=== PATIENT | female | born 1975 | race Caucasian/White ===

== ENCOUNTER 2016-06-25 06:42 | Day surgery (SDC) | payer OTHER ==
--- NOTE | 2016-06-24 15:32 | HP ---
DATE OF CLINIC: 06/20/2016 VICKY MARQUEZ : 1975 PLANNED PROCEDURE: Left Knee Arthroscopic Partial Medial Meniscectomy and Microfracture Chondroplasty DATE OF SURGERY: June 25, 2016 SURGEON: Jp Corley M.D. HISTORY OF PRESENT ILLNESS Vicky Marquez is a 40 year old female. * Medication list reviewed with patient allergy list reviewed with patient. This is a 40-year-old female referred over from [facility] for complaints of left knee pain and mechanical symptoms. She has long-standing knee issues, but has had increasing pain, not only in the front of her knee but also in the medial side of the knee. She has got mechanical symptoms in her medial knee. She has made some improvements with physical therapy in terms of range of motion and strength, but continues to have mechanical symptoms that really limit her ability to participate in desired activities. The pain is a 7-8/10. She is taking anti-inflammatories but has not had any injections. No other specific extremity complaints at this time. She does note that she has had significant weight gain over the past year or so and this seems to have exacerbated her symptoms. After discussion and review of treatment options, both operative and non-operative, she has elected to proceed with surgery and presents today preoperatively. CURRENT MEDICATION * *Supplement Miscellaneous 1 once a day Iron 65mg,, b complex with b12,, Biotin 21769yoc, calcium cit+mag, D3 5000IU, 0 days, 0 refills * BuPROPion HCl ER (XL) 150 MG Tablet Extended Release 24 Hour 1 once a day- total daily dose 450 mg, 30 days, 0 refills * BuPROPion HCl ER (XL) 300 MG Tablet Extended Release 24 Hour 1 once a day, 30 days, 0 refills * Cymbalta 60 MG Capsule Delayed Release Particles 1 once a day, 30 days, 11 refills * Daily Value Multivitamin Tablet 1 twice a day 0 days, 0 refills * Fish Oil 1000 MG Capsule 0 days, 0 refills * Gabapentin 300 MG Capsule three times a day 1 tab po tid for pain, 30 days, 1 refills * TraMADol HCl 50 MG Tablet as directed 2 tab po tid - with the occasional extra dose - not to exceed 400 mg / day - fax to [facility] next due 07/10/16, 28 days, 0 refills PAST MEDICAL/SURGICAL HISTORY Reported: No recent change in medical history and Last mammogram date: age of 11 for cyst around nipple, Medical: History of Arthritis and Depression. Surgical / Procedural: Prior surgery Diagnostic laproscopy that ended up being an open procedure for a blocked valve-(gastro bypass), Cholecystectomy, Caesarean Section x4, and Back Surgery. : 5 and para 4 one miscarriage. All C sections. Diagnoses: Urinary tract infection Acute urinary tract infection Bacterial urinary tract infection Allergies seasonal with cotton tree strep three to four times a year. Surgical: * Tubal ligation SOCIAL HISTORY Social history unchanged. Behavioral: Caffeine use and non-smoker never smoked. Smoking status: Never smoker. Alcohol: Alcohol use a social drinker. Home Environment: Lives alone and with spouse. 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 Sexual: Sexually active. ALLERGIES * adhesive tape Reaction: Skin Rashes/Hives, Bruising * Bees Reaction: Asthma/Shortness of Breath, swelling * Hibiclens Reaction: Skin Rashes/Hives FAMILY HISTORY 4 children living Son strep throat Family medical history Mother: Heart Disease, Seizures, Kidney Disease, HBP, Depression, Thyroid Disease, Father: Diabetes, OA REVIEW OF SYSTEMS No recent constitutional symptoms to include fevers and chills. No recent cardiovascular symptoms to include chest pain or palpitations. No recent respiratory symptoms to include shortness of breath or recent infections. PHYSICAL FINDINGS * Vitals taken 06/20/2016 01:26 pm BP-Sitting R 113/80 mmHg Pulse Rate-Sitting 109 bpm Temp-Oral 98.2 F Height 64 in Weight 246 lbs 9.6 oz Body Mass Index 42.3 kg/m2 Body Surface Area 2.14 m2 Pain Level 5 Pain Level Note 5-6/10 Ears, Nose, Throat: * ENT: normal. Lungs: * Clear to auscultation. Cardiovascular: Heart Rate and Rhythm: * Normal. Abdomen: * Normal. Neurological: Motor: * Dominant Hand = Right Hand. A well-developed, well-nourished female in no acute distress. They are awake, alert and conversant throughout the encounter. She is obese with a BMI of 42.1 today. CARDIOVASCULAR: Intact peripheral pulses on bilateral lower extremities. No significant edema on inspection of bilateral lower extremities. NEUROLOGIC: Patient had intact coordinated composite motion of the bilateral lower extremities and sensation intact to light touch in all distributions of bilateral lower extremities. PSYCHIATRIC: Patient was oriented to person, place and time and displayed appropriate mood and affect during the encounter. SKIN: Exam of the skin on bilateral lower extremities showed no significant scars, lesions, rashes or masses. FOCUSED MUSCULOSKELETAL EXAM: The patient ambulates with some antalgia on the left side. She has moderate swelling and a mild effusion. There is no erythema or ecchymosis. She is tender to palpation primarily along the medial joint line. She has some pain with a patellar grind. She has no patellar instability. She can do a straight leg raise. She has 5/5 strength in flexion and extension at the knee. She is stable to varus and valgus stress that 0 and 30. She has a negative anterior drawer, posterior drawer. She is warm and well perfused distally. TESTS * Test: CBC NO DIFF Report Date: 06/20/2016 WBC 8.8 10*3/mL RBC 4.68 10*6/uL MCH 31.2 pg High MCHC 33.3 g/dL RDW 13.0 % MCV 93.6 fL PLATELET COUNT 360 10*3/mL HCT 43.8 % HGB 14.6 g/L * Test: COMPREHENSIVE METABOLIC PANEL Report Date: 06/20/2016 ALT/SGPT 23 U/L ALBUMIN 4.0 g/dL ALB/GLOB RATIO 1.3 BUN 7 mg/dL BUN/CREAT RATIO 12 CALCIUM 9.2 mg/dL GLUCOSE 101 mg/dL High CREATININE 0.6 mg/dL SODIUM 137 meq/L POTASSIUM 4.1 meq/L CHLORIDE 104 meq/L CARBON DIOXIDE 28 meq/L ANION GAP 9 meq/L TOT PROTEIN 7.0 g/dL GLOBULIN 3.0 g/dL BILI,TOTAL 0.2 mg/dL AST/SGOT 15 U/L ALK PHOSPHATASE 87 U/L GFR 110 High IMAGING: A review of her x-rays show some mild medial compartment narrowing as well as some patellofemoral changes, but fairly mild in terms of their magnitude. Her MRI shows a little bit of mild medial compartment extrusion with a possible meniscus tear at the posterior medial corner of her medial meniscus and a possible chondral injury over her medial femoral condyle. ASSESSMENT A 40-year-old female with left knee pain consistent with medial meniscal pathology and a possible chondral injury. THERAPY * Patient not eligible for fall risk assessment. PLAN * Derang of post horn of medial mensc d/t old tear/inj, l knee Percocet 5-325 MG TABS, 1 every 4 - 6 hours as needed, 30 days, 0 refills * Knee Arthroscopy (Left) with PMM and microfracture chondroplasty CARE TEAM Cathy Nelson, WAREHOUSE ADMINISTRATOR Psychiatric/Mental Health Andrés Conway, DRY CURE WORKER SURGICAL CONSENT We have discussed surgical options including left knee arthroscopic PMM, microfracture chondroplasty and non-operative management. The patient was counseled in detail regarding the diagnosis, treatment options available, prognosis of each treatment option and the potential risks and complications. The risks of surgery include, but are not limited to, anesthetic , neurovascular complications, pulmonary embolism, deep vein thrombosis, wound dehiscence, failure of any or all of the discussed procedures, infection of the joint or surrounding soft tissue, need for revision surgery, chronic pain, limitations in activities of daily living, inability to return to work, and loss of normal range of motion or functional use of the extremity. There is the possibility of failure over time that may require additional operative or non-operative treatment. The patient acknowledged that there are a number of perioperative risks not mentioned here and would still like to proceed. The patient is aware of and understands these risks, and wishes to proceed with the proposed surgical procedure and other procedures as indicated at the time of surgery. We will have the patient see their PCP for a preoperative medical risk assessment. The preoperative instructions were reviewed with the patient and all questions were answered. PB/sg
[~2016-06-25 06:42] MED LIST: CEFAZOLIN SODIUM 2 GRAM PREMIX 100 ML IV ONE; CEFAZOLIN SODIUM 2 GRAM PREMIX 100 ML IV PRN; IV START KIT ONE; LACTATED RINGERS 1,000 ML ONE
[2016-06-25] MEDS ORDERED: MIDAZOLAM HCL 1 MG/ML 2ML VIAL ONE ×2 (06:53→07:53)
[2016-06-25] MEDS ORDERED: FENTANYL 100 MCG/2 ML VIAL ONE ×2 (06:53→08:18)
[2016-06-25] MEDS ORDERED: ONDANSETRON 4 MG/2ML 2 ML VIAL ONE ×2 (06:54→08:02)
[2016-06-25] MEDS ORDERED: PROPOFOL 20 ML IV ONE ×4 (06:54→08:29)
[2016-06-25] MEDS ORDERED: LIDOCAINE 2% (PRES FREE) 5 ML VIAL ONE (06:54)
[2016-06-25] MEDS ORDERED: BUPIVACAINE 0.25% EPI PF 30 ML VIAL ONE (07:24)
[2016-06-25] MEDS ORDERED: SCOPOLAMINE 1.5 MG/72 HR 1 EACH PATCH TD ONE (07:35)
--- NOTE | 2016-06-25 07:57 | PCMBPN ---
Brief Post Op Note: Date of Procedure: 06/25/16 Start Time: 729 Preoperative Diagnosis: 1. LEFT CTS Postoperative Diagnosis: 1. Same Procedure: LEFT CTR Surgeon: Jp Corley MD Assist:CRISTINA Queen Anesthesia: Isabel Kee CRNA Findings: See above Condition: Stable Complications: None IV Fluids: 500 mLs of LR Urine Output: 0 mLs Estimated Blood Loss: 5 mLs Tourniquet Time: 5 min at 250mmHg Specimens: N/A Implants: None Drains: [N/A]
[2016-06-25] MEDS ORDERED: DEXAMETHASONE SOD PHOS 4 MG/1 ML VIAL ONE (08:02)
[2016-06-25] MEDS ORDERED: EPHEDRINE SULFATE 50 MG/ML 1ML VIAL ONE (08:08)
[2016-06-25] MEDS ORDERED: FAMOTIDINE 10 MG/ML 2ML VIAL ONE (08:12)
[2016-06-25] MEDS ORDERED: DIPHENHYDRAMINE HCL 50 MG/1 ML VIAL ONE ×2 (08:12→11:58)
[2016-06-25] MEDS ORDERED: LUBRICANT EYE OINTMENT (PF) 10 APPLIC TUBE ONE (08:26)
[2016-06-25] MEDS ORDERED: NALOXONE HCL 0.4 MG/ML VIAL IV PRN (08:52)
[2016-06-25] MEDS ORDERED: HYDROMORPHONE HCL 1 MG/ML SYRINGE IV PRN ×2 (08:52→09:30)
[2016-06-25] MEDS ORDERED: MEPERIDINE 25 MG/ML SYRINGE IV PRN (08:52)
[2016-06-25] MEDS ORDERED: ATROPINE SULFATE 0.4 MG/1 ML VIAL IV PRN (08:52)
[2016-06-25] MEDS ORDERED: PROMETHAZINE HCL 25 MG/ML VIAL IM PRN (08:52)
[2016-06-25] MEDS ORDERED: ONDANSETRON 4 MG/2ML 2 ML VIAL IV PRN ×2 (08:52→09:30)
--- NOTE | 2016-06-25 08:56 | PCMBPN ---
Brief Post Op Note: Date of Procedure: 06/25/16 Start Time: 0815 Preoperative Diagnosis: 1. LEFT KNEE MEDIAL MENISCUS TEAR Postoperative Diagnosis: 1. LEFT KNEE MEDIAL FEMORAL CONDYLE ARTHRITIC LESION Procedure: LEFT knee Arthroscopy with microfracture of medial femoral condyle, debridement Surgeon: Jp Corley MD Assist:CRISTINA Queen Anesthesia: Douglas Russell CRNA Findings: See above Condition: Stable Complications: None IV Fluids: 800 mLs of LR Urine Output: 0 mLs Estimated Blood Loss: 20 mLs Tourniquet Time: 20 min at 300mmHg Specimens: N/A Implants: none Drains: [N/A]
[2016-06-25] MEDS ORDERED: LACTATED RINGERS 1,000 ML IV SCH ×2 (09:00→09:30)
[2016-06-25] MEDS: FENTANYL 100 MCG/2 ML VIAL IV PRN ×2 (09:14→09:19)
[2016-06-25] MEDS ORDERED: LACTATED RINGERS 1,000 ML ONE (09:25)
[2016-06-25] MEDS ORDERED: DIPHENHYDRAMINE HCL 50 MG/1 ML VIAL IV PRN (09:30)
[2016-06-25] MEDS ORDERED: OXYCODONE/ACETAMINOPHEN 5/325 MG TABLET PO PRN (09:30)
[2016-06-25] MEDS ORDERED: ACETAMINOPHEN 325 MG TABLET PO PRN (09:30)
[2016-06-25] MEDS ORDERED: HYDROMORPHONE HCL 1 MG/ML SYRINGE ONE (09:47)
[2016-06-25] MEDS ORDERED: OXYCODONE/ACETAMINOPHEN 5/325 MG TABLET ONE (10:45)
--- NOTE | 2016-06-26 14:23 | OP ---
Vicky MARQUEZ : 1975 [id number] DATE OF PROCEDURE: June 25, 2016 PREOPERATIVE DIAGNOSIS: Left knee medial meniscus tear. POSTOPERATIVE DIAGNOSIS: Left knee medial femoral condyle chondral lesion. PROCEDURE PERFORMED: LEFT KNEE ARTHROSCOPY WITH DEBRIDEMENT AND MICROFRACTURE OF THE MEDIAL FEMORAL CONDYLE. SURGEON: Jp Corley M.D. RFID ENGINEER: Lakhwinder Vega P.A.-C. ANESTHESIA: Valeria Russell, C.R.N.A. SPECIMENS: No material was sent to the laboratory. ESTIMATED BLOOD LOSS: 20 mL FLUIDS REPLACED: 800 mL of crystalloid. TOURNIQUET TIME: 20 minutes at 250 mmHg. URINE OUTPUT: None. IMPLANTS: None. DRAINS: No drains. INDICATIONS: This is a 40-year-old female who complains of pain and mechanical symptoms in the right knee that have been increasing over time and have not responded to a course of nonoperative measures. Patient has an exam and imaging studies which are consistent with the above. Given failure to improve with nonoperative measures patient was consented for left knee arthroscopy with debridement and microfracture of the medial femoral condyle. The risks, benefits and alternatives were discussed at length with that patient and they elected to proceed with surgery. Informed consent was obtained and documented in the chart and the patient was placed on the schedule the first available convenience. DESCRIPTION OF PROCEDURE: The patient was identified in the preoperative holding area where they were marked with an indelible marker by the operating surgeon. Patient was taken to the operating room where they were placed in the supine position the operating room table. A general anesthesia was induced, perioperative antibiotics were administered and a well padded pre-calibrated nonsterile tourniquet was placed on the left upper thigh. Patient was prepped and draped in the usual sterile fashion for surgery. An operative time out was performed and confirmed by all members of the operative team confirming the patient identity, procedure to be performed and the laterally for that procedure. All necessary personnel, equipment and implants were in place and there were no safety concerns. The leg was elevated and exsanguinated using the Esmarch bandage and the tourniquet was inflated to 250 mmHg. A standard lateral portal was created and the 30 degree viewing arthroscope was inserted into the knee. Optics were directed anteromedially and a medial portal was localized and created in a standard fashion. A probe was inserted through this medial portal and used in completion of the diagnostic arthroscopy with the following findings: 1) There was extensive hypertrophy of the infrapatellar and suprapatellar fat pads. 2) There were no loose bodies identified within the knee. 3) The ACL and PCL were intact. 4) The medial and lateral menisci were largely intact with just some very small areas of fraying at the margin of the lateral meniscus. 5) The medial femoral condyle showed an 8 x 16mm region of full thickness cartilage loss on the weight bearing portion of the dome. 6) There was grade 2 fraying of the cartilage within the patellofemoral joint. After completion of diagnostic arthroscopy the probe was exchanged for a Ring curette and this was used to debride the unstable margins of the medial femoral condyle chondral lesion back to stable margins. This was then exchanged for arthroscopic resector shaver which completed the debridement down to bone. At this point about microfracture awl was used to place four microfracture punches up into the subchondral bone. The flow of arthroscopic fluid was shut off and good bleeding and extrusion of fat from all four sites was confirmed. At this point we felt that we had addressed the patient's intra-articular pathology and so the camera and instruments were removed from the knee. The portal sites were closed with #4-0 Nylons; 20 mL of 0.5% Marcaine was injected into the knee for perioperative analgesia. A sterile dressing of Xeroform, fluffs, ABDs, web roll and then an SUMAN bandage from ankle to the thigh was applied. The tourniquet was deflated, the drapes were removed. The patient was awakened from anesthesia and extubated in the operating room without difficulty. Patient was transferred to a stretcher and taken postoperatively to the post anesthesia care unit in stable condition. There were no observed intraoperative complications during this procedure. Job [id number] Cc: [facility]
== END 2016-06-25 12:42 | disposition home or self-care (01) ==
LOC: SDC 06:42
PROVIDERS: ATTEND Orthopaedic Surgery
PROC: 0SQD4ZZ Repair Left Knee Joint, Percutaneous Endoscopic Approach (ICD-10-PCS; principal; 2016-06-25)
DX: M17.12 Unilateral primary osteoarthritis, left knee (principal); E66.9 Obesity, unspecified; Z68.41 Body mass index [BMI] 40.0-44.9, adult; F32.9 Major depressive disorder, single episode, unspecified; Z88.8 Allergy status to other drugs, medicaments and biological substances
CPT/HCPCS: 29879; J1200 ×2; J1170; J3010 ×3; J1100; A9270 ×3; J2550; J2250 ×2; J2405 ×2; J7120 ×2; J0690